=== PATIENT | female | born 2000 | race Hispanic/Latino ===

== ENCOUNTER 2025-05-16 20:22 | Emergency (ER) | payer SELFPAY ==
[~2025-05-16] VITALS: Ht 152.4 cm; Wt 99.8 kg
[2025-05-16 20:22] VITALS: TEMP 98.5
[2025-05-16 20:47] LABS: BASOPHILS % 0.3 % (0.0-1.0); EOSINOPHILS % 3.6 % (0.0-6.0); LYMPHOCYTES % 36.2 % (18.0-39.1); MONOCYTES % 4.7 % (4.4-11.3); NEUTROPHILS % 54.9 % (38.7-80.0); RED CELL DISTRIBUTION WIDTH 14.9 % (11.7-14.4)
[2025-05-16 21:06] LABS: EST GLOMERULAR FILTRATION RATE 115.0 ML/MIN (>=60)
[2025-05-16 23:28] VITALS: PULSE 74; RESP 17
[2025-05-17 00:08] VITALS: BP 118/62; PULSE 71; RESP 18; TEMP 98.3; O2SAT 98
== END 2025-05-17 | disposition home or self-care (01) ==
LOC: ER 23:12
DX: R07.1 Chest pain on breathing (principal); F41.9 Anxiety disorder, unspecified
CPT/HCPCS: 36415; 71045; 80053; 82550; 84484; 84702; 85025; 85379; 93005; 99284